=== PATIENT | female | born 1960 | race Caucasian/White ===

== ENCOUNTER 2016-08-24 13:03 | Emergency (ER) | payer OTHER ==
[~2016-08-24] VITALS: Ht 165.1 cm; Wt 74.8 kg
[~2016-08-24 13:03] MED LIST: BACTRIM DS 8001 TAB PO; BENTYL20 MG PO; CIPRO 500MG TA500 MG PO; LEVOTHYROXIN0.125 M1 PO; MEDROL DOSEPAK1 PAC PO; MOTRIN800 MG PO; NASONEX0.05 MG/Ac NAS; ROBITUSSIN W/CO10 ML PO; TESSALON PERLE100 MG PO; VICODIN 5-3001 EACH PO; ZESTORETIC 25 M1 TAB PO
--- NOTE | 2016-08-24 13:39 | ED CARDIAC/CP/PALPITATIONS ---
History of Present Illness General Chief Complaint: Chest Pain Stated Complaint: CHEST PAIN Source: patient Exam Limitations: no limitations Vital Signs & Intake/Output Vital Signs & Intake/Output Vital Signs Date Time Temp Pulse Resp B/P Pulse O2 O2 Flow FiO2 Ox Delivery Rate 08/24 2011 98.2 74 18 142/90 96 08/24 1827 97.6 66 16 126/95 97 Room Air 08/24 1603 97.5 76 18 129/92 96 08/24 1445 96 08/24 1429 Room Air 08/24 1307 96.7 73 18 163/103 98 Room Air ED Intake and Output 08/25 0000 08/24 1200 Intake Total Output Total Balance Patient 165 lb Weight Allergies Coded Allergies: meperidine (From DEMEROL) (PER PT WAS IN ICU AFTER SX 08/24/16) Reconcile Medications Albuterol Sulfate 2.5 MG/3 ML (0.083 %) VIAL.NEB 1 Vial INH/MOJGAN Q4-6H PRN COPD (Reported) Alprazolam 0.5 MG TABLET 1 TAB PO TID ANXIETY (Reported) Biotin (Unknown Strength) CAPSULE (Unknown Dose) PO DAILY SUPPLEMENT ( Reported) Budesonide/Formoterol Fumarate (Symbicort 160-4.5 Mcg Inhaler) 160 MCG-4.5 MCG/ ACTUATION HFA.AER.AD 2 PUF INH BID COPD (Reported) Cyanocobalamin (Vitamin B-12) (Unknown Strength) TABLET (Unknown Dose) PO DAILY SUPPLEMENT (Reported) Lactobacillus Acidophilus (Probiotic) (Unknown Strength) CAPSULE (Unknown Dose ) PO DAILY SUPPLEMENT (Reported) Levothyroxine Sodium 150 MCG TABLET 1 TAB PO DAILY THYROID (Reported) Montelukast Sodium 10 MG TABLET 1 TAB PO DAILY COPD (Reported) Multivitamin (Multi-Day Vitamins) 1 EACH TABLET 1 TAB PO DAILY SUPPLEMENT ( Reported) Triage Note: 56 Y/O FEMALE C/O CHEST PAIN AND UPPER BACK PAIN SINCE YESTERDAY; RECENTLY TREATED FOR COPD WITH INHALERS AND STATES SHE IS UNSURE IF THE PAIN IN RELATED TO HER LUNGS TAKEN FOR EKG Triage Nurses Notes Reviewed? yes Onset: Abrupt Duration: day(s): (LAST NIGHT) Timing: recent history Quality/Severity: moderate, severe Location: central Radiation: no radiation HPI: 56-year-old female comes into emergency room for further evaluation of chest pain has been going on since last night around 6 PM. Pain is located across the center of her chest. Sharp. Intermittent. Pain is worse with range of motion. Some associated shortness of breath. Patient was recently diagnosed with COPD and started on albuterol. Denies any arm pain and jaw pain. Denies any vomiting or diaphoresis. Denies any previous history of coronary disease. Denies any other associated symptoms. (MAJOR BARBA) Past History Travel History Traveled to [place] past 21 day No Medical History Any Pertinent Medical History? 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 No (MAJOR BARBA) Review of Systems Review of Systems Constitutional: Reports: no symptoms. EENTM: Reports: no symptoms. Respiratory: Reports: no symptoms. Cardiovascular: Reports: see HPI. GI: Reports: no symptoms. Genitourinary: Reports: no symptoms. Musculoskeletal: Reports: see HPI. Skin: Reports: no symptoms. Neurological/Psychological: Reports: no symptoms. Hematologic/Endocrine: Reports: no symptoms. Immunologic/Allergic: Reports: no symptoms. All Other Systems: Reviewed and Negative (MAJOR BARBA) Physical Exam Physical Exam General Appearance: well developed/nourished, no apparent distress, alert, awake Head: atraumatic, normal appearance Eyes: Bilateral: normal appearance, EOMI. Ears, Nose, Throat: normal pharynx, normal ENT inspection, hearing grossly normal Neck: normal inspection, full range of motion Respiratory: normal breath sounds, no respiratory distress Cardiovascular: regular rate/rhythm Gastrointestinal: soft Back: normal inspection, normal range of motion Extremities: normal inspection, normal range of motion Neurologic/Psych: awake, alert, oriented x 3, normal gait, normal mood/affect Skin: intact, normal color Core Measures ACS in differential dx? No Severe Sepsis Present: No Septic Shock Present: No (MAJOR BARBA) Progress Differential Diagnosis: AMI, aortic dissection, cholecystitis, costochondritis, hypovolemia, intracranial hemorrhage, musculoskeletal pain, myocarditis, pancreatitis, pericarditis, pneumonia, pneumothorax, pulmonary embolism, PUD/ GERD, PVCs/PACs, respiratory failure, rib fracture, unstable angina, WPW syndrome Plan of Care: Orders Procedure Date/time Status Add-on Test (ER Only) 08/24 191 Active TROPONIN LEVEL 08/24 1820 Complete EKG 08/24 1820 Active D-DIMER 08/24 1419 Complete Telemetry/Radiologist Diagnostic 08/24 1351 Active TROPONIN LEVEL 08/24 1321 Complete COMPREHENSIVE METABOLIC PANEL 08/24 1321 Complete CBC WITHOUT DIFFERENTIAL 08/24 1321 Complete EKG 08/24 1304 Active Laboratory Tests 08/24/16 1839: Troponin I < 0.01 08/24/16 1419: Anion Gap 12, Estimated GFR > 60, BUN/Creatinine Ratio 15.0, Glucose 90, Calcium 9.7, Total Bilirubin 0.5, AST 32, ALT 47, Alkaline Phosphatase 82, Troponin I < 0.01, Total Protein 8.0, Albumin 4.6, Globulin 3.4, Albumin/Globulin Ratio 1.4, D-Dimer < 200, CBC w Diff NO MAN DIFF REQ, RBC 4.75, MCV 84.1, MCH 27.9, RDW 16.8 H, MPV 7.8, Gran % 64.2, Lymphocytes % 26.2, Monocytes % 6.1, Eosinophils % 2.9, Basophils % 0.6, Absolute Granulocytes 4.2, Absolute Lymphocytes 1.7, Absolute Monocytes 0.4, Absolute Eosinophils 0.2, Absolute Basophils 0, PUBS MCHC 33.1 Diagnostic Imaging: Viewed by Me: Radiology Read. Discussed w/RAD: Radiology Read. Radiology Impression: SERVICE DATE: 08/24/16 EXAM TYPE: RAD - XRY-CHEST XRAY, PA AND LATERAL EXAMINATION: XR CHEST CLINICAL INFORMATION: Chest pain COMPARISON: 08/15/2015 TECHNIQUE: PA and lateral views of the chest were obtained. FINDINGS: The lungs are well expanded. There is no focal consolidation , edema, or effusion. No pneumothorax. The cardiomediastinal silhouette is within normal limits. No acute osseous abnormality. IMPRESSION: No acute pulmonary findings. DICTATED BY: ONESIMO MCMILLAN MD Initial ED EKG: normal intervals, normal p-waves, normal QRS complex, normal sinus rhythm, rate (67) Repeat EKG: unchanged (MAJOR BARBA) Departure Departure Disposition: HOME OR SELF CARE Condition: Stable Clinical Impression Primary Impression: Chest wall pain Referrals: SAM SHEPARD D.O. (PCP/Family) Additional Instructions: Follow-up with roving changer provided. Rest. Return if any concerns worsening symptoms. Please go over all results of today's visit with your primary care doctor. Contact your primary care doctor to let them know you were here in the emergency room. There may be nonspecific findings which may not be related to your visit today here in the emergency room but may require further evaluation and chronic monitoring by your primary care doctor. If you had a laceration today the chance of foreign body always remains. You should follow-up with your primary care doctor for recheck in 3-5 days for a wound check. If you had an x-ray done there is a chance that a fracture could have been missed on initial read and you should follow-up with your primary care doctor for repeat x-rays if symptoms persist. If your blood pressure was elevated here in the emergency room please have rechecked by her primary care doctor within the next 48 hours by your primary care doctor. If you were prescribed a narcotic here in the emergency room or any type of controlled substances you're not allowed to drive while taking this medication or operate any type of heavy machinery. Narcotics can make you feel lightheaded dizziness nausea and can cause constipation. 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 Thank you for choosing [facility] emergency room. Please return to the emergency room immediately if you have any other concerns worsening of symptoms. Departure Forms: Customer Survey General Discharge Information Comments 08/24/2016 8:42:42 PM Chest pain is reproducible. Pain is worse with range of motion. Patient has 2 normal troponins and 2 normal EKGs. D-dimer negative. Very low suspicion at this time for any type of acute coronary event. Case was discussed with Dr. Winston and patient was evaluated by Dr. Winston. Patient is anxious and wants to go home. Patient clinically feels fine at this time. In no apparent distress on discharge. (MAJOR BARBA) PA/TAX INTERN Co-Sign Statement Statement: ED Attending supervision documentation- [] I saw and evaluated the patient. I have also reviewed all the pertinent lab results and diagnostic results. I agree with the findings and the plan of care as documented in the PA's/TAX INTERN's documentation. [x] I have reviewed the ED Record and agree with the PA's/TAX INTERN's documentation. [] Additions or exceptions (if any) to the PAs/TAX INTERN's note and plan are summarized below: [] (ARTHUR PRINCE,KYLEE Bermudez) Critical Care Note Critical Care Note Critical Care Time: non-applicable (MAJOR BARBA)
--- NOTE | 2016-08-24 14:13 | RADIOLOGY REPORT ---
EXAMINATION: XR CHEST CLINICAL INFORMATION: Chest pain COMPARISON: 08/15/2015 TECHNIQUE: PA and lateral views of the chest were obtained. FINDINGS: The lungs are well expanded. There is no focal consolidation, edema, or effusion. No pneumothorax. The cardiomediastinal silhouette is within normal limits. No acute osseous abnormality. IMPRESSION: No acute pulmonary findings.
[2016-08-24 14:26] LABS: ABSOLUTE BASOPHIL COUNT 0 /CUMM (0.0-0.2); ABSOLUTE EOSINOPHIL COUNT 0.2 /CUMM (0.0-0.7); ABSOLUTE GRANULOCYTE CT 4.2 /CUMM (1.4-6.5); ABSOLUTE LYMPH COUNT 1.7 /CUMM (1.2-3.4); ABSOLUTE MONOCYTE COUNT 0.4 /CUMM (0.10-0.60); BASOPHIL % 0.6 % (0.0-2.0); EOSINOPHIL % 2.9 % (0-5); GRANULOCYTE % 64.2 % (42.2-75.2); MEAN CORPUSCULAR HGB 27.9 PG (27.0-31.0); MEAN CORPUSCULAR HGB CONC 33.1 G/DL (33.0-37.0); MEAN CORPUSCULAR VOLUME 84.1 FL (81.0-99.0); MEAN PLATELET VOLUME 7.8 FL (7.4-10.4); PLATELET COUNT 416 /CUMM (130-400); RBC DISTRIBUTION WIDTH 16.8 % (11.5-14.5); RED BLOOD CELL CT 4.75 /CUMM (4.20-5.40); WHITE BLOOD CELL COUNT 6.5 /CUMM (4.8-10.8)
[2016-08-24] MEDS ORDERED: LEVOTHYROXINE150 MCG PO (14:30)
[2016-08-24] MEDS ORDERED: MONTELUKAST SOD10 M1 PO (14:31)
[2016-08-24] MEDS ORDERED: ALBUTEROL2.5 MG/3 M INH/SOL (14:31)
[2016-08-24] MEDS ORDERED: ALPRAZOLAM0.5 M4 PO (14:32)
[2016-08-24] MEDS ORDERED: VITAMIN B-121000 MC3 PO (14:32)
[2016-08-24] MEDS ORDERED: SYMBICORT 16010.2 GM INH (14:32)
[2016-08-24] MEDS ORDERED: BIOTIN2500 MCG PO (14:33)
[2016-08-24] MEDS ORDERED: MULTI-DAY VITA1 EACH PO (14:33)
[2016-08-24] MEDS ORDERED: PROBIOTIC1 EACH PO (14:33)
[2016-08-24 20:12] VITALS: BP 142/90
== END 2016-08-24 20:30 ==
LOC: ERH 13:03
PROVIDERS: Physician Assistant Medical
DX: R07.89 Other chest pain (principal)
CPT/HCPCS: 1263; 93005; 93010; 96374; J1885

== ENCOUNTER 2017-12-24 13:13 | Emergency (ER) | payer OTHER ==
[~2017-12-24 13:13] MED LIST changes: +ALBUTEROL2.5 MG/3 M INH/SOL; +ALPRAZOLAM0.5 M4 PO; +BENTYL10 M1 PO; +BIOTIN2500 MCG PO; +LEVOTHYROXINE150 MCG PO; +MONTELUKAST SOD10 M1 PO; +MULTI-DAY VITA1 EACH PO; +PREDNISONE50 M1 PO; +PROBIOTIC1 EACH PO; +SYMBICORT 16010.2 GM INH; +VALTREX1000 MG PO; +VITAMIN B-121000 MC3 PO
[2017-12-24 13:28] VITALS: BP 136/82
--- NOTE | 2017-12-24 16:00 | ED GENERAL ADULT ---
History of Present Illness General Chief Complaint: General Adult Stated Complaint: PT IS HAVING PROBLEM BREATHING Vital Signs & Intake/Output Vital Signs & Intake/Output Vital Signs Date Time Temp Pulse Resp B/P B/P Pulse O2 O2 Flow FiO2 Mean Ox Delivery Rate 12/24 1328 98.4 87 18 136/82 99 Room Air Allergies Coded Allergies: meperidine (From DEMEROL) (PER PT WAS IN ICU AFTER SX 08/24/16) Reconcile Medications Albuterol Sulfate 2.5 MG/3 ML (0.083 %) VIAL.NEB 1 Vial INH/MOJGAN Q4-6H PRN COPD (Reported) Alprazolam 0.5 MG TABLET 1 TAB PO TID ANXIETY (Reported) Biotin (Unknown Strength) CAPSULE (Unknown Dose) PO DAILY SUPPLEMENT ( Reported) Budesonide/Formoterol Fumarate (Symbicort 160-4.5 Mcg Inhaler) 160 MCG-4.5 MCG/ ACTUATION HFA.AER.AD 2 PUF INH BID COPD (Reported) Cyanocobalamin (Vitamin B-12) (Unknown Strength) TABLET (Unknown Dose) PO DAILY SUPPLEMENT (Reported) Dicyclomine Hydrochloride (Bentyl) 10 MG CAPSULE 1 CAP PO TID PRN IBS Lactobacillus Acidophilus (Probiotic) (Unknown Strength) CAPSULE (Unknown Dose ) PO DAILY SUPPLEMENT (Reported) Levothyroxine Sodium 150 MCG TABLET 1 TAB PO DAILY THYROID (Reported) Montelukast Sodium 10 MG TABLET 1 TAB PO DAILY COPD (Reported) Multivitamin (Multi-Day Vitamins) 1 EACH TABLET 1 TAB PO DAILY SUPPLEMENT ( Reported) Prednisone 50 MG TABLET 1 TAB PO DAILY bells palsy Valacyclovir HCl (Valtrex) 1,000 MG TABLET 1 TAB PO TID bells palsy Triage Note: C/O SOB X A FEW MONTHS, WORSE TODAY. STATES COUGH IS ALSO WORSE WITH CHEST TIGHTNESS AND RIB PAIN. HAS APPOINTMENT TOMORROW WITH DR. CARABALLO. 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
== END 2017-12-24 15:59 | disposition admitted as inpatient to this hospital (09) ==
LOC: ERH 13:13
DX: R06.02 Shortness of breath (principal); R05 Cough; R07.89 Other chest pain
CPT/HCPCS: 93005; 93010; 99281; J2001